=== PATIENT | male | born 1965 | race Caucasian/White ===

== ENCOUNTER → 2016-07-27 | Outpatient (CLI) | payer MEDICARE, OTHER | LOC: KOH-I 13:43 | DX: R10.0 Acute abdomen (principal); K76.0 Fatty (change of) liver, not elsewhere classified; K57.30 Diverticulosis of large intestine without perforation or abscess without bleeding; R59.0 Localized enlarged lymph nodes | CPT/HCPCS: 74176 ==

== ENCOUNTER → 2021-12-25 | Outpatient (CLI) | payer MEDICARE, OTHER ==
[~2021-12-25] MED LIST: BACTRIM DS TAB1 EACH PO; CLINDAMYCIN HC300 MG PO; COUMADIN 1MG TAB1 MG PO; COUMADIN5 MG PO; COUMADIN6 MG PO; ECOTRIN81 MG PO; EFFEXOR XR37.5 MG PO; GABAPENTIN800 MG PO; HYDROCODON-ACE1 EAC4 PO; IMDUR ER TAB 3030 MG PO; JANUMET 50-1,01 EACH PO; K-DUR TAB 20 M20 MEQ PO; LASIX40 MG PO; LEVOFLOXACIN500 MG PO; NICOTINE PATCH1 EAC2 TOP; NORVASC 5 MG TAB5 MG PO; PROTONIX40 M1 PO; STIOLTO RESPIMAT4 GM PO; TOPROL XL25 MG PO; VENTOLIN/PROVE0.5 ML INH; VIAGRA25 MG PO; WARFARIN SODIUM4 MG PO; ZESTRIL40 MG PO; ZOCOR20 MG PO
== END ==
LOC: KOH-I 13:19
DX: F17.210 Nicotine dependence, cigarettes, uncomplicated (principal)
CPT/HCPCS: 71271